=== PATIENT | male | born 1975 | race Hispanic/Latino ===

== ENCOUNTER → 2019-04-06 | Day surgery (SDC) | payer BC ==
[2019-04-04 14:04] LABS: BASOPHILS % 0.2 % (0.0-1.0); EOSINOPHILS # (AUTO) 0.3 (0.0-0.4); HEMATOCRIT 48.2 % (38.2-49.6); HEMOGLOBIN 16.5 g/dL (14.0-18.0); LYMPHOCYTES # (AUTO) 1.8 (1.0-3.2); LYMPHOCYTES % 21.7 % (18.0-39.1); MEAN CORPUSCULAR HGB CONC 34.2 g/dL (31-35); MEAN CORPUSCULAR VOLUME 90.4 fL (81-99); MONOCYTES # (AUTO) 0.5 (0.2-0.8); NEUTROPHILS # (AUTO) 5.5 (2.1-6.9); NEUTROPHILS % 67.9 % (38.7-80.0); PLATELET COUNT 206 x10e3/uL (140-360); RED BLOOD COUNT 5.33 x10e6/uL (4.3-5.7); RED CELL DISTRIBUTION WIDTH 13.4 % (11.7-14.4)
[2019-04-04 14:28] LABS: ANION GAP 14.9 mmol/L (8-16); CREATININE, SERUM 1.6 mg/dL (0.72-1.25); POTASSIUM 3.9 mmol/L (3.5-5.1)
[~2019-04-06] MED LIST: ALLOPURINOL300 MG PO; CRESTOR10 MG PO; DEXAMETHASONE SOD PHOS INJ 4 MG/ML VIAL ONE; FENTANYL CITRATE/PF 100MCG/2 ML INJ ONE; IOPAMIDOL 610MG/1ML 300 MG/ML VIAL IV ONE; LIDOCAINE HCL 2% LOCAL INJ 5 ML SDV VIAL INJ ONE; LOSARTAN POTAS100 MG PO; MIDAZOLAM HCL 2 MG/2 ML VIAL ONE; ONDANSETRON HCL INJ 2MG/ML 2ML 2 MG/ML VIAL ONE; PROPOFOL IV EMULSION 10 MG/ML 20 ML VIAL ONE; SEVOFLURANE INHAL SOLN 250 ML PEN BTL ONE
--- OUTSIDE RECORDS SUMMARY | 2019-04-06 08:22 | XMS REPORT | Clinical Summary ---
Author Author [employer] Address Unknown Phone Unavailable Care Team Providers Care Facility Sales And Admin Name Role Phone Paolo Hernandez MD PCP Allergies Comments Active Allergy Reactions Severity Noted Date Hydrocodone 09/12/2018 Medications End Date Status Medication Sig Dispensed Refills Start Date Active allopurinol (ZYLOPRIM) Take 300 mg 0 100 MG tablet by mouth daily. Active fenofibrate (LOFIBRA) 54 Take 54 mg by 0 MG tablet mouth daily. Active losartan (COZAAR) 100 MG Take 100 mg 0 tablet by mouth daily. 09/17/2018 keTOROlac (TORadol) 10 mg Take 1 tablet 20 tablet 0 tablet (10 mg total) 9 by mouth every 6 (six) hours as needed for moderate pain for up to 5 days. Active Problems Not on file Encounters Care Team Description Date Type Specialty Moncho Short MD Chest pain, unspecified type (Primary Dx) 09/12/2018 Emergency Emergency Medicine 09/12/2018 Travel after 04/05/2018 Social History Date Tobacco Use Types Packs/Day Years Used Never Smoker Smokeless Tobacco: Never Used Drinks/Week oz/Week Comments Alcohol Use Occational Yes Sex Assigned at Date Recorded Not on file Industry Job Start Date Occupation Not on file Not on file Not on file Travel End Travel History Travel Start No recent travel history available. Last Filed Vital Signs Reading Time Taken Comments Vital Sign 136/87 09/12/2018 1:30 PM ADJUSTO WRITER OPERATOR Blood Pressure 58 09/12/2018 1:30 PM ADJUSTO WRITER OPERATOR Pulse 37 C (98.6 F) 09/12/2018 8:34 AM ADJUSTO WRITER OPERATOR Temperature 12 09/12/2018 1:30 PM ADJUSTO WRITER OPERATOR Respiratory Rate 98% 09/12/2018 1:30 PM ADJUSTO WRITER OPERATOR Oxygen Saturation - - Inhaled Oxygen Concentration 81.6 kg (180 lb) 09/12/2018 8:34 AM ADJUSTO WRITER OPERATOR Weight 167.6 cm (5' 6") 09/12/2018 8:34 AM ADJUSTO WRITER OPERATOR Height 29.05 09/12/2018 8:34 AM ADJUSTO WRITER OPERATOR Body Mass Index Plan of Treatment Health Maintenance Due Date Last Done Comments INFLUENZA VACCINE 02/23/2019 Procedures Comments Procedure Name Priority Date/Time Associated Diagnosis CT ANGIOGRAM PE CHEST STAT 09/12/2018 11:58 AM ADJUSTO WRITER OPERATOR TROPONIN Timed 09/12/2018 11:49 AM ADJUSTO WRITER OPERATOR ECG ED PRELIMINARY Routine 09/12/2018 INTERPRETATION 10:25 AM ADJUSTO WRITER OPERATOR XR CHEST 1 VW STAT 09/12/2018 9:19 AM ADJUSTO WRITER OPERATOR ESTIMATED GFR STAT 09/12/2018 8:40 AM ADJUSTO WRITER OPERATOR B NATRIURETIC PEPTIDE STAT 09/12/2018 8:40 AM ADJUSTO WRITER OPERATOR TROPONIN STAT 09/12/2018 8:40 AM ADJUSTO WRITER OPERATOR COMPREHENSIVE METABOLIC STAT 09/12/2018 PANEL 8:40 AM ADJUSTO WRITER OPERATOR HC COMPLETE BLD COUNT STAT 09/12/2018 W/AUTO DIFF 8:40 AM ADJUSTO WRITER OPERATOR ECG 12-LEAD STAT 09/12/2018 8:33 AM ADJUSTO WRITER OPERATOR after 04/05/2018 Results * CT Angiogram Pe Chest (09/12/2018 11:58 AM ADJUSTO WRITER OPERATOR) Specimen Narrative Performed At EXAMINATION: CT ANGIOGRAM PE CHEST [facility] CLINICAL HISTORY: cppleuritic TECHNIQUE:PE PROTOCOL: CT angiographic images of the chest were obtained during intravenous administration of iodinated contrast. Computerized reformatted images and 3-D MIP images were also obtained and archived (CT pulmonary embolus protocol). CT imaging was performed with iterative reconstruction technique and/or automated exposure control to reduce radiation dose. COMPARISON: Chest x-ray dated 09/12/2018 IMPRESSION: CHEST: 1. Pulmonary Arteries: No definite CT scan evidence of acute pulmonary embolus. 2. Aorta: The thoracic aorta is nonaneurysmal 3. Heart: The heart is normal in size. 4. Pericardial Fluid: No pericardial effusion. 5. Mediastinum: No enlarged mediastinal or hilar lymphadenopathy. No mediastinal mass. 4. Airways: Central airways are patent. 5. Lungs: No acute infiltrates or suspicious pulmonary nodules or masses. The lungs are clear. 6. Pleural Fluid: No pleural effusions. 7. Bones: Osseous structures intact. No destructive bony lesions. 8. Upper Abdomen: Fatty infiltration of the liver. 9. Other Findings: None SUMMARY: 1. No CT scan evidence of acute pulmonary embolus. No acute findings in the chest. [id number] Procedure Note Interface, Radiology Results Incoming - 09/12/2018 12:09 PM ADJUSTO WRITER OPERATOR EXAMINATION: CT ANGIOGRAM PE CHEST CLINICAL HISTORY: cp pleuritic TECHNIQUE: PE PROTOCOL: CT angiographic images of the chest were obtained during intravenous administration of iodinated contrast. Computerized reformatted images and 3-D MIP images were also obtained and archived (CT pulmonary embolus protocol). CT imaging was performed with iterative reconstruction technique and/or automated exposure control to reduce radiation dose. COMPARISON: Chest x-ray dated 09/12/2018 IMPRESSION: CHEST: 1. Pulmonary Arteries: No definite CT scan evidence of acute pulmonary embolus. 2. Aorta: The thoracic aorta is nonaneurysmal 3. Heart: The heart is normal in size. 4. Pericardial Fluid: No pericardial effusion. 5. Mediastinum: No enlarged mediastinal or hilar lymphadenopathy. No mediastinal mass. 4. Airways: Central airways are patent. 5. Lungs: No acute infiltrates or suspicious pulmonary nodules or masses. The lungs are clear. 6. Pleural Fluid: No pleural effusions. 7. Bones: Osseous structures intact. No destructive bony lesions. 8. Upper Abdomen: Fatty infiltration of the liver. 9. Other Findings: None SUMMARY: 1. No CT scan evidence of acute pulmonary embolus. No acute findings in the chest. [facility]-[id number] Performing Organization Address City/State/Zipcode Phone Number [facility] [address] [place] [address] * Troponin (09/12/2018 11:49 AM ADJUSTO WRITER OPERATOR) Only the most recent of 2 results within the time period is included. Troponin <0.30 0.00 - 0.30 ng/mL [place] Comment: [place] 0.11 - 1.49 [facility] indicate increased risk of acute coronary syndrome. >=1.5 ng/ml Consistent with acute myocardial infarction. The diagnostic value of a single normal or non-diagnostic result is questionable.Serial samples at 2-6 hour intervals are required to rule out acute myocardial injury. Specimen Plasma specimen Performing Organization Address City/State/Zipcode Phone Number [facility] DEPARTMENT OF [address] [place] [address] PATHOLOGY AND GENOMIC MEDICINE [place] [address] [place], [place] [id number] [place] [address] * ECG ED Preliminary Interpretation - Not an Order (09/12/2018 10:25 AM ADJUSTO WRITER OPERATOR) Narrative Performed At Moncho Short MD 09/12/20188:00 PM ECG ED Preliminary Interpretation - Not an Order Performed by: Moncho Short MD Authorized by: Moncho Short MD ECG reviewed by ED Physician in the absence of a adjunct teacher: yes Interpretation: Interpretation: normal Rate: ECG rate:68 ECG rate assessment: normal Rhythm: Rhythm: sinus rhythm Ectopy: Ectopy: none QRS: QRS axis:Normal QRS intervals:Normal * XR Chest 1 Vw (09/12/2018 9:19 AM ADJUSTO WRITER OPERATOR) Specimen Narrative Performed At EXAMINATION:XR CHEST 1 VW [facility] CLINICAL HISTORY:chest pain COMPARISON:None. IMPRESSION: Heart is enlarged Lungs are clear Bony structures and limits [facility]-[id number] Procedure Note Hm Interface, Radiology Results Incoming - 09/12/2018 9:25 AM ADJUSTO WRITER OPERATOR EXAMINATION: XR CHEST 1 VW CLINICAL HISTORY: chest pain COMPARISON: None. IMPRESSION: Heart is enlarged Lungs are clear Bony structures and limits [facility]-[id number] Performing Organization Address City/[facility]/Zipcode Phone Number [facility] [address] [place] [address] * Estimated GFR (09/12/2018 8:40 AM ADJUSTO WRITER OPERATOR) Estimated GFR 67 mL/min/1.73 m2 [place] Comment: [place] [facility] G1 >=90 Normal or high G2 60-89Mildly decreased H2z11-12 Mildly to moderately decreased S5f28-07 Moderately to severely decreased G4 15-29Severely decreased G5 <15Kidney failure The eGFR was calculated using the Chronic Kidney Disease Epidemiology Collaboration (CKD-EPI) equation. Interpretation is based on recommendations of the National Kidney Foundation-Kidney Disease Outcomes Quality Initiative (NKF-KDOQI) published in 2014. Specimen Plasma specimen Performing Organization Address City/State/Zipcode Phone Number [facility] [address] [place] [address] PATHOLOGY AND GENOMIC MEDICINE [facility] [address] [place], [place] [phone] [place] [address] * CBC with platelet and differential (09/12/2018 8:40 AM ADJUSTO WRITER OPERATOR) WBC 5.1 4.2 - 11.0 k/uL [facility] RBC 4.51 4.04 - 5.86 m/uL [facility] HGB 13.7 13.0 - 17.3 g/dL [facility] HCT 40.0 34.0 - 45.0 % [facility] MCV 88.7 80.0 - 98.0 fL [facility] MCH 30.4 27.0 - 34.0 pg [facility] MCHC 34.3 31.5 - 36.5 g/dL [facility] RDW - SD 41.8 37.0 - 51.0 fL [facility] MPV 10.1 7.4 - 10.4 fL [facility] Platelet count 219 150 - 400 k/uL [facility] Nucleated RBC 0.00 /100 WBC [facility] Neutrophils 53.4 36.0 - 66.0 % [facility] Lymphocytes 33.0 24.0 - 44.0 % [facility] Monocytes 7.1 (H) 0.0 - 6.0 % [facility] Eosinophils 5.5 0.0 - 6.0 % [facility] Basophils 0.6 0.0 - 1.2 % [facility] Immature 0.4 0.0 - 1.0 % [place] granulocytes [facility] Specimen Blood Performing Organization Address City/State/Zipcode Phone Number [facility] [address] [place] [address] PATHOLOGY AND GENOMIC MEDICINE [facility] [address] [place], [place] [phone] [place] [address] * B natriuretic peptide (09/12/2018 8:40 AM ADJUSTO WRITER OPERATOR) Pathologist [facility] BNP 15 0 - 100 pg/mL [facility] Specimen Blood Performing Organization Address City/[facility] Phone Number [facility] [address] [place] [address] PATHOLOGY AND GENOMIC MEDICINE [facility] [address] * Comprehensive metabolic panel (09/12/2018 8:40 AM ADJUSTO WRITER OPERATOR) [facility] Sodium 143 135 - 150 mEq/L [facility] Potassium 4.0 3.5 - 5.0 mEq/L [facility] Chloride 107 98 - 112 mEq/L [facility] CO2 25 24 - 31 mmol/L [facility] Anion gap 11@ANIO 7 - 15 mEq/L [facility] BUN 16 7 - 18 mg/dL [facility] Creatinine 1.30 (H) 0.70 - 1.20 mg/dL [facility] Glucose 112 (H) 65 - 100 mg/dL [facility] Calcium 10.0 8.3 - 10.2 mg/dL [facility] Protein 7.3 6.3 - 8.3 g/dL [facility] Albumin 4.1 3.5 - 5.0 g/dL [facility] A/G ratio 1.3 0.7 - 3.8 [facility] Alkaline 49 0 - 129 U/L [place] phosphatase [facility] AST 29 10 - 50 U/L [facility] ALT 40 5 - 50 U/L [facility] Total bilirubin 0.6 0.2 - 1.2 mg/dL [facility] Specimen Plasma specimen Performing Organization Address City/[facility]/Zipcode Phone Number [facility] [address] [place] [address] PATHOLOGY AND GENOMIC MEDICINE [facility] [address] [place] [address] [facility] * ECG 12 lead (09/12/2018 8:33 AM ADJUSTO WRITER OPERATOR) Ventricular 68 [facility] rate Atrial rate 68 [facility] WV interval 154 [facility] QRSD interval 80 [facility] QT interval 390 [facility] QTC interval 414 [facility] P axis 1 40 [facility] QRS axis 1 8 [facility] T wave axis 42 [facility] EKG impression Normal sinus rhythm-Normal [facility] ECG-No previous ECGs available- Specimen Narrative Performed At Performing Organization Address City/State/Zipcode Phone Number [facility] [address] [place] [address] after 04/05/2018 Insurance Type Payer Benefit Subscriber ID Effective Phone Address Plan / Dates Group PPO BCBS BCBS xxxxxxxxxxxx 2017- CHOICE Present PPO/[employer] PPO Advance Directives For more information, please contact: [phone] Patient Nutritional Assistant Explanation Type Date Recorded Advance Directives, 09/12/2018 10:06 AM Living Will and Medical Power of Manager Nicu
[2019-04-06 11:10] VITALS: BP 146/91
--- NOTE | 2019-04-06 14:27 | Operative Report ---
DATE OF PROCEDURE: 04/06/2019 SURGEON: Yazan Julien MD PREOPERATIVE DIAGNOSIS: Left mid ureteral stone. POSTOPERATIVE DIAGNOSIS: Left mid ureteral stone. OPERATIVE PROCEDURES PERFORMED: 1. Cystoscopy. 2. Left retrograde pyelogram. 3. Left ureteroscopy with laser lithotripsy and fragment extraction. 4. Placement of left ureteral stent. ANESTHESIA: General anesthesia. ESTIMATED BLOOD LOSS: Minimal. INDICATIONS: Mr. Durant is a 44-year-old gentleman with a history of left flank pain, nausea, vomiting. He was found to have an 89 mm mid ureteral stone on CAT scan. He now presents for definitive surgical management of this problem. PROCEDURE IN DETAIL: The patient was brought into the operative room, placed in supine position. After initiation of general anesthesia, was placed in the dorsal lithotomy position and prepped and draped in the usual sterile fashion. Cystourethroscopy was performed with a 22-Chadian cystoscope. The anterior and posterior urethra were noted to be normal. The prostate was normal in size, shape, and configuration. The bladder was entered without difficulty. Upon entrance into the bladder, the ureteral orifices were in normal anatomical position and produce clear efflux. There were no mucosal lesions identified. Using a 5-Chadian open-ended catheter, a left retrograde pyelogram was performed. The distal ureter was noted to be normal. In the mid ureter, there was a calcification, approximately 8 to 9 mm in diameter with [id number] hydronephrosis noted behind it and some tortuosity is noted at that location. An Amplatz wire was placed past the stone up into the left renal pelvis and a long ureteral access sheath was placed. Flexible ureteroscopy was then performed. The previously described stone was noted to be somewhat impacted at its previously described level. The holmium laser was then used to break the stone into multiple small fragments and release it from its mucosal overgrowth. All that the larger stone fragments were captured with a basket and removed, and sent to pathology for microscopic analysis. The wire was left in situ and the ureteral access sheath was removed. A 4.5-Chadian 26 cm stent was then placed such that one coil was in the renal pelvis and the subsequent coil was in the bladder. The string was allowed to exit the urethral meatus. The patient was returned to supine position. Anesthesia was reversed. He was transferred to a bed and taken to the postanesthesia care unit in a good condition. Of note, the needle and instrument counts were correct at the conclusion of the case. MD HEAVEN Adkins/RAUL /[id number]
== END | disposition home or self-care (01) ==
LOC: OR 08:19
PROVIDERS: ATTEND Urology
DX: N13.2 Hydronephrosis with renal and ureteral calculous obstruction (principal); I10 Essential (primary) hypertension; E78.5 Hyperlipidemia, unspecified; Z01.810 Encounter for preprocedural cardiovascular examination; Z01.812 Encounter for preprocedural laboratory examination
CPT/HCPCS: 36415; 52356; 74420; 80048; 85025; 88300; 93005; C1758; C1766; C2625; J1100; J2001; J2250; J2405; J2704; J3010; Q9967